=== PATIENT | male | born 1975 | race Two or more races ===

== ENCOUNTER 2018-05-29 22:08 | Emergency (ER) | payer MEDICAID, OTHER ==
[~2018-05-29] VITALS: Ht 177.8 cm; Wt 116.3 kg
[~2018-05-29 22:08] MED LIST: FLO0.4C PO; NO HOME MEDS; PANT40TA39 PO
[2018-05-29 22:11] VITALS: BP 170/102
[2018-05-29] MEDS ORDERED: WARF5TAB PO (22:51)
[2018-05-29] MEDS ORDERED: WARF2TAB PO (22:51)
== END 2018-05-29 22:56 | disposition home or self-care (01) ==
LOC: ER 22:09
DX: I26.99 Other pulmonary embolism without acute cor pulmonale (principal); F12.10 Cannabis abuse, uncomplicated; F17.200 Nicotine dependence, unspecified, uncomplicated; K21.9 Gastro-esophageal reflux disease without esophagitis; Z76.0 Encounter for issue of repeat prescription
CPT/HCPCS: 99283

== ENCOUNTER 2018-07-02 01:01 | Emergency (ER) | payer OTHER ==
[~2018-07-02 01:01] MED LIST changes: +WARF2TAB PO; +WARF5TAB PO
== END 2018-07-02 02:32 | disposition left against medical advice (07) ==
LOC: ER 01:01
DX: M54.2 Cervicalgia (principal); Z53.21 Procedure and treatment not carried out due to patient leaving prior to being seen by health care provider

== ENCOUNTER 2018-08-22 06:04 | Emergency (ER) | payer MEDICAID, OTHER ==
[~2018-08-22] VITALS: Ht 177.8 cm; Wt 127.5 kg
[2018-08-22 07:48] LABS: D-DIMER 0.35 MG/L FEU (0-0.50)
[2018-08-22] MEDS ORDERED: iohexol 350MG/ML 100ml bottle IV ONE (07:51)
[2018-08-22 07:53] LABS: BASOPHILS % (AUTO) 0.5 % (0-1); EOSINOPHILS % (AUTO) 0.6 % (0-6); HEMATOCRIT 46.3 % (42.0-52.0); HEMOGLOBIN 16.2 g/dl (14.0-17.9); LYMPHOCYTES # (AUTO) 1.2 X10'3 (1.1-4.8); LYMPHOCYTES % (AUTO) 17.7 % (21-51); MEAN CORPUSCULAR HEMOGLOBIN 33.6 PG (27.0-31.0); MEAN PLATELET VOLUME 9.2 FL (7.4-10.4); MONOCYTES # (AUTO) 0.5 X10'3 (0-0.9); MONOCYTES % (AUTO) 7.9 % (2-12); NEUTROPHILS # (AUTO) 4.8 X10'3 (1.8-7.7); NEUTROPHILS % (AUTO) 73.3 % (42-75); PLATELET COUNT 209 X10'3 (140-440); RED BLOOD COUNT 4.82 X10'6 (4.70-6.10); RED CELL DISTRIBUTION WIDTH 12.9 % (11.5-14.5); WHITE BLOOD COUNT 6.6 X10'3 (4.5-11.0)
[2018-08-22 08:02] LABS: ALANINE AMINOTRANSFERASE 30 U/L (12-78); ALBUMIN 3.9 G/DL (3.4-5.0); ALKALINE PHOSPHATASE 76 IU/L (46-116); ANION GAP 12 (8-16); ASPARTATE AMINO TRANSFERASE 20 U/L (10-37); BILIRUBIN,TOTAL 0.7 MG/DL (0.1-1.0); BLOOD UREA NITROGEN 13 MG/DL (7-18); BUN/CREATININE RATIO 12.5 (5.4-32.0); CALCIUM 8.9 MG/DL (8.5-10.1); CHLORIDE 103 MMOL/L (99-107); CREATININE 1.04 MG/DL (0.60-1.10); GLUCOSE 115 MG/DL (70-104); POTASSIUM 3.8 MMOL/L (3.5-5.1); SODIUM 140 MMOL/L (135-145); TOTAL CARBON DIOXIDE 25.1 MMOL/L (24-32); eGFR 78 ML/MIN
[2018-08-22 08:06] LABS: INR 1.1 INR; PARTIAL THROMBOPLASTIN TIME 28 SECONDS (22-32); PROTHROMBIN TIME 10.8 SECONDS (9.0-12.0)
[2018-08-22 09:05] VITALS: BP 169/95
== END 2018-08-22 09:22 | disposition home or self-care (01) ==
LOC: ER 06:05
DX: R07.89 Other chest pain (principal); K21.9 Gastro-esophageal reflux disease without esophagitis; Z86.718 Personal history of other venous thrombosis and embolism; F12.90 Cannabis use, unspecified, uncomplicated; F17.200 Nicotine dependence, unspecified, uncomplicated; Z79.01 Long term (current) use of anticoagulants; Z79.899 Other long term (current) drug therapy
CPT/HCPCS: 36415; 80053; 84484; 85025; 85379; 85610; 85730; 93005; 99284; Q9967

== ENCOUNTER → 2018-10-10 | Emergency (ER) | payer MEDICAID, OTHER ==
[~2018-10-10] VITALS: Ht 177.8 cm; Wt 101.0 kg
[~2018-10-10] MED LIST changes: +CEPH500C5 PO; +NYST15PO4 TP; +SULF1TAB49 PO
[2018-10-10 05:48] VITALS: BP 150/90
== END | disposition home or self-care (01) ==
LOC: ER 05:46
DX: L30.4 Erythema intertrigo (principal); L03.115 Cellulitis of right lower limb; K21.9 Gastro-esophageal reflux disease without esophagitis; Z86.718 Personal history of other venous thrombosis and embolism; Z86.711 Personal history of pulmonary embolism; Z79.899 Other long term (current) drug therapy; Z59.0 Homelessness
CPT/HCPCS: 99283

== ENCOUNTER 2019-04-30 08:04 | Emergency (ER) | payer MEDICAID ==
[~2019-04-30] VITALS: Ht 177.8 cm; Wt 99.5 kg
[~2019-04-30 08:04] MED LIST changes: -CEPH500C5 PO; +CYCL-1 PO; -FLO0.4C PO; -NO HOME MEDS; -NYST15PO4 TP; -PANT40TA39 PO; -SULF1TAB49 PO; -WARF2TAB PO; -WARF5TAB PO
[2019-04-30] MEDS ORDERED: triamcinolone acetonide 40mg/ml inj IM ONE (08:30)
[2019-04-30 08:47] VITALS: BP 129/100
[2019-04-30] MEDS ORDERED: CEPH-572 PO (08:47)
[2019-04-30] MEDS ORDERED: DIPH25CA83 PO (08:47)
== END 2019-04-30 09:51 | disposition home or self-care (01) ==
LOC: ER 08:04
DX: L03.113 Cellulitis of right upper limb (principal); L23.9 Allergic contact dermatitis, unspecified cause; K21.9 Gastro-esophageal reflux disease without esophagitis; F15.90 Other stimulant use, unspecified, uncomplicated; Z86.718 Personal history of other venous thrombosis and embolism; Z86.711 Personal history of pulmonary embolism
CPT/HCPCS: 96372; 99283; J3301

== ENCOUNTER 2019-05-02 23:34 | Emergency (ER) | payer MEDICAID ==
[~2019-05-02] VITALS: Ht 177.8 cm; Wt 81.0 kg
[~2019-05-02 23:34] MED LIST changes: +CEPH-572 PO; +DIPH25CA83 PO
[2019-05-03] MEDS ORDERED: naproxen 500mg tablet PO ONE (01:25)
[2019-05-03] MEDS ORDERED: HYDROcodone/acetaminophen 10/325mg tab PO ONE (01:25)
[2019-05-03] MEDS ORDERED: TRIA15CR61 TOP (01:28)
[2019-05-03] MEDS ORDERED: predniSONE 20 mg tablet PO ONE (01:30)
[2019-05-03] MEDS ORDERED: triamcinolone acetonide 40mg/ml inj IM ONE (01:30)
[2019-05-03] MEDS ORDERED: diphenhydrAMINE 25mg capsule PO ONE (01:30)
[2019-05-03 02:22] VITALS: BP 132/68
== END 2019-05-03 02:30 | disposition home or self-care (01) ==
LOC: ER 23:35
DX: L03.115 Cellulitis of right lower limb (principal); L25.9 Unspecified contact dermatitis, unspecified cause; F15.90 Other stimulant use, unspecified, uncomplicated; K21.9 Gastro-esophageal reflux disease without esophagitis; Z86.718 Personal history of other venous thrombosis and embolism; Z86.711 Personal history of pulmonary embolism; Z59.0 Homelessness
CPT/HCPCS: 96372; 99284; J3301; J7512; Q0163

== ENCOUNTER 2019-05-06 02:33 | Emergency (ER) | payer MEDICAID ==
[~2019-05-06] VITALS: Ht 177.8 cm; Wt 100.0 kg
[~2019-05-06 02:33] MED LIST changes: +TRIA15CR61 TOP
[2019-05-06 02:36] VITALS: BP 117/97
[2019-05-06] MEDS ORDERED: mupirocin 2% ointment 22GM TP STA (03:07)
== END 2019-05-06 03:42 | disposition home or self-care (01) ==
LOC: ER 02:33
DX: R21 Rash and other nonspecific skin eruption (principal); K21.9 Gastro-esophageal reflux disease without esophagitis; F17.200 Nicotine dependence, unspecified, uncomplicated; F15.90 Other stimulant use, unspecified, uncomplicated; F10.99 Alcohol use, unspecified with unspecified alcohol-induced disorder; Z86.718 Personal history of other venous thrombosis and embolism; Z86.711 Personal history of pulmonary embolism; Z60.2 Problems related to living alone; Z59.0 Homelessness; Z79.899 Other long term (current) drug therapy; Y90.9 Presence of alcohol in blood, level not specified
CPT/HCPCS: 99282

== ENCOUNTER 2019-06-08 03:25 | Emergency (ER) | payer MEDICAID ==
[~2019-06-08] VITALS: Ht 177.8 cm; Wt 90.9 kg
[~2019-06-08 03:25] MED LIST changes: -CEPH-572 PO; -TRIA15CR61 TOP
[2019-06-08 03:35] VITALS: BP 139/90
[2019-06-08] MEDS ORDERED: MUPI22OI30 TOP (03:49)
[2019-06-08] MEDS ORDERED: PRED20TA PO (03:49)
== END 2019-06-08 03:55 | disposition home or self-care (01) ==
LOC: ER 03:25
DX: L25.9 Unspecified contact dermatitis, unspecified cause (principal); F15.90 Other stimulant use, unspecified, uncomplicated; K21.9 Gastro-esophageal reflux disease without esophagitis; F10.99 Alcohol use, unspecified with unspecified alcohol-induced disorder; Z86.711 Personal history of pulmonary embolism; Z86.718 Personal history of other venous thrombosis and embolism; Z60.2 Problems related to living alone; Z59.0 Homelessness; Z79.899 Other long term (current) drug therapy; Y90.9 Presence of alcohol in blood, level not specified
CPT/HCPCS: 99283

== ENCOUNTER 2019-08-19 17:34 | Emergency (ER) | payer MEDICAID ==
[~2019-08-19] VITALS: Ht 177.8 cm; Wt 100.0 kg
[2019-08-19 17:40] VITALS: BP 112/81
[2019-08-19] MEDS ORDERED: ibuprofen tablet 400 MG TABLET PO ONE (20:00)
== END 2019-08-19 20:19 | disposition home or self-care (01) ==
LOC: ER 17:35
DX: S93.492A Sprain of other ligament of left ankle, initial encounter (principal); S00.83XA Contusion of other part of head, initial encounter; K21.9 Gastro-esophageal reflux disease without esophagitis; F17.200 Nicotine dependence, unspecified, uncomplicated; F10.99 Alcohol use, unspecified with unspecified alcohol-induced disorder; F15.90 Other stimulant use, unspecified, uncomplicated; Z86.718 Personal history of other venous thrombosis and embolism; Z86.711 Personal history of pulmonary embolism; Z60.2 Problems related to living alone; Z59.0 Homelessness; Z79.899 Other long term (current) drug therapy; W01.0XXA Fall on same level from slipping, tripping and stumbling without subsequent striking against object, initial encounter; Y93.89 Activity, other specified; Y92.89 Other specified places as the place of occurrence of the external cause; Y99.8 Other external cause status; Y90.9 Presence of alcohol in blood, level not specified
CPT/HCPCS: 29515; 73610; 99284

== ENCOUNTER 2019-08-24 10:32 | Inpatient (IN) | payer MEDICAID ==
[~2019-08-24] VITALS: Ht 177.8 cm; Wt 97.0 kg
[2019-08-24 11:08] LABS: BASOPHILS % (AUTO) 0.3 % (0-1); EOSINOPHILS # (AUTO) 0.1 X10'3 (0-0.9); EOSINOPHILS % (AUTO) 0.8 % (0-6); HEMATOCRIT 48.1 % (42.0-52.0); LYMPHOCYTES # (AUTO) 1.2 X10'3 (1.1-4.8); LYMPHOCYTES % (AUTO) 16.6 % (21-51); MEAN CORPUSCULAR HGB CONC 35.4 g/dL (33.0-36.5); MEAN PLATELET VOLUME 7.8 FL (7.4-10.4); MONOCYTES # (AUTO) 0.7 X10'3 (0-0.9); MONOCYTES % (AUTO) 10.3 % (2-12); NEUTROPHILS # (AUTO) 5.2 X10'3 (1.8-7.7); PLATELET COUNT 306 X10'3 (140-440); RED BLOOD COUNT 5.01 X10'6 (4.70-6.10); RED CELL DISTRIBUTION WIDTH 12.7 % (11.5-14.5); WHITE BLOOD COUNT 7.2 X10'3 (4.5-11.0)
[2019-08-24 11:32] LABS: ALANINE AMINOTRANSFERASE 21 U/L (12-78); ALBUMIN 3.5 G/DL (3.4-5.0); ALBUMIN/GLOBULIN RATIO 0.8 (1.1-1.5); ALKALINE PHOSPHATASE 79 IU/L (46-116); ASPARTATE AMINO TRANSFERASE 13 U/L (10-37); BILIRUBIN,TOTAL 0.4 MG/DL (0.1-1.0); BLOOD UREA NITROGEN 15 MG/DL (7-18); BUN/CREATININE RATIO 13.6 (5.4-32.0); CALCIUM 9.6 MG/DL (8.5-10.1); CHLORIDE 103 MMOL/L (99-107); GLUCOSE 119 MG/DL (70-104); LIPASE 140 U/L (73-393); POTASSIUM 4.2 MMOL/L (3.5-5.1); TOTAL CARBON DIOXIDE 30.5 MMOL/L (24-32); eGFR 73 ML/MIN
[2019-08-24 11:39] LABS: SODIUM 140 MMOL/L (135-145)
[2019-08-24 11:39] LABS: CLARITY,URINE SLIGHTLY CLOUDY (Clear); COLOR,URINE YELLOW (Yellow); GLUCOSE, URINE NEGATIVE (Neg); KETONES,URINE NEGATIVE (Neg); LEUKOCYTE ESTERASE ,URINE NEGATIVE (Neg); NITRITES, URINE NEGATIVE (Neg); OCCULT BLOOD,URINE LARGE (Neg); PROTEIN,URINE NEGATIVE (Neg); UROBILINOGEN,URINE 0.2 E.U/dL (0.2-1.0)
[2019-08-24 11:40] LABS: UA COLLECTION TYPE CLN CATCH MIDSTREAM
[2019-08-24 11:48] LABS: BACTERIA,URINE NONE SEEN /HPF (Neg); MUCUS STRANDS FEW /LPF (Neg); SQUAMOUS EPITHELIAL CELL,UR FEW /LPF (FEW); WBC CLUMPS,URINE FEW /HPF (NEGATIVE)
[2019-08-24 11:50] LABS: CAL OXALATE CRYSTALS 2+ /HPF (NEGATIVE)
[2019-08-24] MEDS ORDERED: normal saline 1000ML IV soln IVB ONE (12:10)
[2019-08-24] MEDS ORDERED: metoclopramide 5 mg/ml inj IV ONE (12:10)
[2019-08-24 12:13] LABS: ANION GAP 7 (8-16)
--- NOTE | 2019-08-24 12:35 | NUR ---
Pt transported to CT scan via w/c. IV site and IVF bolus and medications to be started upon return from the CT scan.
[2019-08-24] MEDS ORDERED: normal saline 1000ml 1,000 ML IV ONE (12:55)
[2019-08-24] MEDS ORDERED: NO HOME MEDS (13:43)
[2019-08-24] MEDS ORDERED: magnesium 2GM in 50ml NS 50 ML IV PRN (13:45)
[2019-08-24] MEDS ORDERED: thiamine 100mg/ml 2ml inj. IV ONE (13:45)
[2019-08-24] MEDS ORDERED: haloperidol 5mg tablet PO PRN (13:45)
[2019-08-24] MEDS ORDERED: haloperidol lactate 5mg/ml inj IM PRN (13:45)
[2019-08-24] MEDS ORDERED: magnesium hydroxide 30ml (MOM) UD suspension PO PRN (13:45)
[2019-08-24] MEDS ORDERED: potassium Cl 20 mEq SR tablet PO PRN ×2 (13:45)
[2019-08-24] MEDS ORDERED: magnesium Cl slow-release 64mg tablet PO PRN (13:45)
[2019-08-24] MEDS ORDERED: magnesium 4gm in 100ml NS 100 ML IV PRN (13:45)
[2019-08-24] MEDS ORDERED: potassium CL 10mEq/100ml bag 100 ML IV PRN ×2 (13:45)
[2019-08-24] MEDS ORDERED: acetaminophen 325mg tablet PO PRN (13:45)
[2019-08-24] MEDS ORDERED: dextrose 50%-water 50ml dispensing syringe IV PRN (13:45)
[2019-08-24] MEDS ORDERED: ondansetron/PF 4mg/2ml inj IV PRN (13:45)
[2019-08-24] MEDS ORDERED: HYDROmorphone 1 mg/ml syringe IV PRN (13:45)
[2019-08-24] MEDS ORDERED: HYDROmorphone inj. 0.5 MG/0.5 ML DISP.SYRIN IV PRN (13:45)
[2019-08-24] MEDS ORDERED: LORazepam 2 mg/ml vial IV PRN (13:45)
--- NOTE | 2019-08-24 13:58 | NUR ---
PT REFUSING NG, WANTS TO SPEAK TO DR. KLINE BEFORE PLACEMENT. INFORMED DR. KLINE. WILL GO TALK TO PT.
--- NOTE | 2019-08-24 14:12 | NUR ---
PT AMBULATED TO BR, VOIDED AND BM X1 LOOSE/WATERY LARGE AMT
[2019-08-24] MEDS ORDERED: LIDOcaine 2% 10ml TOPICAL JELLY (Urojet) MM ONE (14:20)
[2019-08-24] MEDS: pantoprazole 40 MG vial IV SCH (14:27)
--- NOTE | 2019-08-24 15:56 | NUR ---
Saravanan carreon in [facility] - 08/24/19 at 1557 by CHRISTOPHER pt voided in brief.
[2019-08-24 16:13] VITALS: BP 134/76
[2019-08-24] MEDS: normal saline 1000ml 1,000 ML IV SCH (16:33)
[2019-08-24] MEDS: heparin, porcine 5000 units/ml vial SQ SCH (16:38)
--- NOTE | 2019-08-24 16:50 | NUR ---
Patient to room 340 A from the ED. Received report from GIRISH Roblero. Patient VSS. NG tube rotary planer set up operator to suction per MD order. Patient very sleepy and not very cooperative. Attempted to DART patient but patient is not answering questions appropriately. Will pass on.
--- NOTE | 2019-08-24 18:24 | NUR ---
Problems reprioritized. Patient report given, questions answered & plan of care reviewed with GIRISH Gibson.
[2019-08-24 19:27] VITALS: BP 136/85
[2019-08-24] MEDS: K and/or MAG REPLACEMENT MC SCH (20:00)
[2019-08-24] MEDS: diatr meglu/diatrizoate 30ml oral sol.-(3 dose) bottle PO SCH (20:55)
[2019-08-25] VITALS: BP 105/70
[2019-08-25] MEDS: heparin, porcine 5000 units/ml vial SQ SCH ×2 (00:29→07:58)
[2019-08-25] MEDS: normal saline 1000ml 1,000 ML IV SCH ×2 (00:29→12:04)
[2019-08-25 03:21] LABS: BASOPHILS % (AUTO) 0.7 % (0-1); EOSINOPHILS # (AUTO) 0.1 X10'3 (0-0.9); EOSINOPHILS % (AUTO) 1.5 % (0-6); HEMATOCRIT 40.3 % (42.0-52.0); HEMOGLOBIN 14.1 g/dl (14.0-17.9); LYMPHOCYTES # (AUTO) 1.6 X10'3 (1.1-4.8); LYMPHOCYTES % (AUTO) 23.9 % (21-51); MEAN CORPUSCULAR HEMOGLOBIN 33.8 PG (27.0-31.0); MEAN CORPUSCULAR HGB CONC 35.1 g/dL (33.0-36.5); MEAN CORPUSCULAR VOLUME 96.3 FL (78-98); MEAN PLATELET VOLUME 7.8 FL (7.4-10.4); MONOCYTES # (AUTO) 0.6 X10'3 (0-0.9); MONOCYTES % (AUTO) 8.9 % (2-12); NEUTROPHILS # (AUTO) 4.4 X10'3 (1.8-7.7); PLATELET COUNT 258 X10'3 (140-440); RED BLOOD COUNT 4.18 X10'6 (4.70-6.10); RED CELL DISTRIBUTION WIDTH 12.4 % (11.5-14.5); WHITE BLOOD COUNT 6.8 X10'3 (4.5-11.0)
[2019-08-25 03:36] LABS: ALANINE AMINOTRANSFERASE 18 U/L (12-78); ALBUMIN 2.6 G/DL (3.4-5.0); ALBUMIN/GLOBULIN RATIO 0.8 (1.1-1.5); ALKALINE PHOSPHATASE 59 IU/L (46-116); ANION GAP 6 (8-16); ASPARTATE AMINO TRANSFERASE 9 U/L (10-37); BILIRUBIN,TOTAL 0.3 MG/DL (0.1-1.0); BLOOD UREA NITROGEN 11 MG/DL (7-18); BUN/CREATININE RATIO 13.3 (5.4-32.0); CALCIUM 8.2 MG/DL (8.5-10.1); CHLORIDE 109 MMOL/L (99-107); CREATININE 0.83 MG/DL (0.60-1.10); GLUCOSE 88 MG/DL (70-104); MAGNESIUM 1.5 MG/DL (1.5-2.4); POTASSIUM 3.8 MMOL/L (3.5-5.1); SODIUM 143 MMOL/L (135-145); TOTAL CARBON DIOXIDE 27.6 MMOL/L (24-32); eGFR > 90 ML/MIN
--- NOTE | 2019-08-25 06:41 | NUR ---
Problems reprioritized. Patient report given, questions answered & plan of care reviewed with SAM. Addendum: 08/25/19 at 0641 by Marcial Cornejo RN Amended: Links added.
[2019-08-25] MEDS: diatr meglu/diatrizoate 30ml oral sol.-(3 dose) bottle PO SCH ×2 (07:57→10:21)
[2019-08-25] MEDS: pantoprazole 40 MG vial IV SCH (07:57)
[2019-08-25 08:00] VITALS: BP 111/72
[2019-08-25] MEDS: K and/or MAG REPLACEMENT MC SCH (08:00)
--- NOTE | 2019-08-25 09:24 | NUR ---
Patient in room DES 340. I have received report from Arthur STOUT and had the opportunity to ask questions and assume patient care.
[2019-08-25] MEDS ORDERED: iohexol 300mg/ml 100ml inj. ONE (09:40)
--- NOTE | 2019-08-25 10:30 | NUR ---
PIV S/L'd. NG clamped. Pt down to CT via w/c accompanied by assistant foreman. Pt belongings left in room.
[2019-08-25 11:00] VITALS: BP 118/71
--- NOTE | 2019-08-25 11:00 | NUR ---
Pt returned to room from CT via w/c accompanied by printing roller polisher. NG reconnected to low intermittent suction. PIV reconnected to IVF as ordered. Pt without complaint.
[2019-08-25] MEDS ORDERED: HYDROcodone/acetaminophen 10/325mg tab PO PRN (11:55)
[2019-08-25] MEDS ORDERED: HYDROcodone/acetaminophen 5mg/325mg tablet PO PRN (11:55)
--- NOTE | 2019-08-25 12:00 | NUR ---
NG tube d/c'd. Pt tolerated well, cannula intact.
--- NOTE | 2019-08-25 14:30 | NUR ---
Pt leaving AMA. Dr Marley notified. Pt educated in reasons to continue hospital stay and not leave AMA. Pt refused to wait. PIV d/c'd, cannula intact. Pt left with all personal belongings.
[2019-08-26] MEDS ORDERED: LORazepam 2 mg/ml vial IV PRN (13:45)
[2019-08-26] MEDS ORDERED: LORazepam 1 MG tablet PO PRN (13:45)
[2019-08-28] MEDS ORDERED: LORazepam 1 MG tablet PO PRN (13:45)
[2019-08-28] MEDS ORDERED: LORazepam 2 mg/ml vial IV PRN (13:45)
== END 2019-08-25 14:27 | disposition left against medical advice (07) | DRG 249 ==
LOC: ER 10:33 → ED HOLD 13:43 → SUR 3N 15:55
PROVIDERS: ADMIT Family Medicine; ATTEND Family Medicine
PROC: 0D9670Z Drainage of Stomach with Drainage Device, Via Natural or Artificial Opening (ICD-10-PCS; principal; 2019-08-24)
DX: K52.9 Noninfective gastroenteritis and colitis, unspecified (principal); F10.10 Alcohol abuse, uncomplicated; F15.10 Other stimulant abuse, uncomplicated; Z59.0 Homelessness; F17.210 Nicotine dependence, cigarettes, uncomplicated; Z53.29 Procedure and treatment not carried out because of patient's decision for other reasons; K21.9 Gastro-esophageal reflux disease without esophagitis; Z83.3 Family history of diabetes mellitus; Z86.711 Personal history of pulmonary embolism; Z86.718 Personal history of other venous thrombosis and embolism
CPT/HCPCS: 36415; 71045; 74018; 74176; 74177; 80053; 81001; 82948; 83690; 83735; 85025; 87081; 87088; C9113; G0378; J1170; J1644; J2060; J2765; J3411; J7030; Q9963; Q9967

== ENCOUNTER 2020-01-21 10:37 | Emergency (ER) | payer MEDICAID ==
[~2020-01-21] VITALS: Ht 177.8 cm; Wt 90.0 kg
[~2020-01-21 10:37] MED LIST changes: -CYCL-1 PO; -DIPH25CA83 PO; +NO HOME MEDS
[2020-01-21 12:09] LABS: BASOPHILS % (AUTO) 0.5 % (0-1); EOSINOPHILS # (AUTO) 0.6 X10'3 (0-0.9); EOSINOPHILS % (AUTO) 7.4 % (0-6); HEMATOCRIT 46.3 % (42.0-52.0); HEMOGLOBIN 15.9 g/dl (14.0-17.9); LYMPHOCYTES # (AUTO) 1.8 X10'3 (1.1-4.8); LYMPHOCYTES % (AUTO) 23.1 % (21-51); MEAN CORPUSCULAR HGB CONC 34.3 g/dL (33.0-36.5); MEAN CORPUSCULAR VOLUME 99.1 FL (78-98); MEAN PLATELET VOLUME 8.2 FL (7.4-10.4); MONOCYTES # (AUTO) 0.6 X10'3 (0-0.9); MONOCYTES % (AUTO) 8.5 % (2-12); NEUTROPHILS # (AUTO) 4.6 X10'3 (1.8-7.7); NEUTROPHILS % (AUTO) 60.5 % (42-75); PLATELET COUNT 236 X10'3 (140-440); RED BLOOD COUNT 4.68 X10'6 (4.70-6.10); RED CELL DISTRIBUTION WIDTH 14.1 % (11.5-14.5); WHITE BLOOD COUNT 7.7 X10'3 (4.5-11.0)
[2020-01-21] MEDS ORDERED: CEPH250T PO (12:26)
[2020-01-21 12:32] LABS: ALANINE AMINOTRANSFERASE 18 U/L (12-78); ALBUMIN 3.8 G/DL (3.4-5.0); ALBUMIN/GLOBULIN RATIO 1.2 (1.1-1.5); ALKALINE PHOSPHATASE 74 IU/L (46-116); ANION GAP 4 (8-16); ASPARTATE AMINO TRANSFERASE 17 U/L (10-37); BILIRUBIN,TOTAL 0.5 MG/DL (0.1-1.0); BLOOD UREA NITROGEN 15 MG/DL (7-18); BUN/CREATININE RATIO 13.5 (5.4-32.0); CALCIUM 8.7 MG/DL (8.5-10.1); CHLORIDE 109 MMOL/L (99-107); CREATININE 1.11 MG/DL (0.60-1.10); GLUCOSE 87 MG/DL (70-104); POTASSIUM 3.6 MMOL/L (3.5-5.1); SODIUM 143 MMOL/L (135-145); TOTAL CARBON DIOXIDE 29.6 MMOL/L (24-32); eGFR 72 ML/MIN
[2020-01-21 12:51] VITALS: BP 131/86
== END 2020-01-21 12:54 | disposition home or self-care (01) ==
LOC: ER 10:38
DX: L03.114 Cellulitis of left upper limb (principal); L23.7 Allergic contact dermatitis due to plants, except food
CPT/HCPCS: 36415; 80053; 85025; 99283

== ENCOUNTER 2020-01-25 04:25 | Emergency (ER) | payer MEDICAID ==
[~2020-01-25] VITALS: Ht 177.8 cm; Wt 100.0 kg
[~2020-01-25 04:25] MED LIST changes: +CEPH250T PO
[2020-01-25] MEDS ORDERED: CEPH500C5 PO (05:47)
--- NOTE | 2020-01-25 07:09 | NUR ---
US TECH AT BEDSIDE.
[2020-01-25 07:53] VITALS: BP 121/92
== END 2020-01-25 07:55 | disposition home or self-care (01) ==
LOC: ER 04:26
DX: L03.114 Cellulitis of left upper limb (principal); L23.7 Allergic contact dermatitis due to plants, except food; M79.89 Other specified soft tissue disorders; F17.200 Nicotine dependence, unspecified, uncomplicated; K21.9 Gastro-esophageal reflux disease without esophagitis; F12.90 Cannabis use, unspecified, uncomplicated; F15.90 Other stimulant use, unspecified, uncomplicated; Z86.711 Personal history of pulmonary embolism; Z86.718 Personal history of other venous thrombosis and embolism; Z72.89 Other problems related to lifestyle; Z60.2 Problems related to living alone; Z59.0 Homelessness; Z79.2 Long term (current) use of antibiotics
CPT/HCPCS: 93971; 99284

== ENCOUNTER 2020-06-19 06:34 | Inpatient (IN) | payer MEDICAID ==
[~2020-06-19] VITALS: Ht 185.4 cm; Wt 90.0 kg
[~2020-06-19 06:34] MED LIST changes: -CEPH250T PO; +CEPH500C5 PO
[2020-06-19] MEDS ORDERED: piperacillin/tazo 3.375gm/50ml 50 ML IV ONE (07:20)
--- NOTE | 2020-06-19 07:48 | NUR ---
Dr. Fan denies need for blood cultures at this time
[2020-06-19 07:53] LABS: BASOPHILS % (AUTO) 0.4 % (0-1); EOSINOPHILS # (AUTO) 0.1 X10'3 (0-0.9); EOSINOPHILS % (AUTO) 0.5 % (0-6); HEMATOCRIT 40.1 % (42.0-52.0); HEMOGLOBIN 13.6 g/dl (14.0-17.9); LYMPHOCYTES # (AUTO) 0.9 X10'3 (1.1-4.8); LYMPHOCYTES % (AUTO) 7.6 % (21-51); MEAN CORPUSCULAR HEMOGLOBIN 32.1 PG (27.0-31.0); MEAN CORPUSCULAR HGB CONC 33.9 g/dL (33.0-36.5); MEAN CORPUSCULAR VOLUME 94.7 FL (78-98); MEAN PLATELET VOLUME 7.7 FL (7.4-10.4); MONOCYTES # (AUTO) 0.8 X10'3 (0-0.9); MONOCYTES % (AUTO) 6.1 % (2-12); NEUTROPHILS # (AUTO) 10.6 X10'3 (1.8-7.7); NEUTROPHILS % (AUTO) 85.4 % (42-75); PLATELET COUNT 271 X10'3 (140-440); RED BLOOD COUNT 4.23 X10'6 (4.70-6.10); WHITE BLOOD COUNT 12.4 X10'3 (4.5-11.0)
[2020-06-19 08:05] LABS: ALANINE AMINOTRANSFERASE 14 U/L (12-78); ALBUMIN 3.1 G/DL (3.4-5.0); ALBUMIN/GLOBULIN RATIO 0.7 (1.1-1.5); ALKALINE PHOSPHATASE 84 IU/L (46-116); ANION GAP 7 (8-16); ASPARTATE AMINO TRANSFERASE 14 U/L (10-37); BILIRUBIN,TOTAL 0.5 MG/DL (0.1-1.0); BLOOD UREA NITROGEN 10 MG/DL (7-18); BUN/CREATININE RATIO 12.7 (5.4-32.0); CHLORIDE 102 MMOL/L (99-107); CREATININE 0.79 MG/DL (0.60-1.10); GLUCOSE 201 MG/DL (70-104); POTASSIUM 3.7 MMOL/L (3.5-5.1); SODIUM 134 MMOL/L (135-145); TOTAL CARBON DIOXIDE 25.1 MMOL/L (24-32); TOTAL PROTEIN 7.7 G/DL (6.4-8.2); eGFR > 90 ML/MIN
[2020-06-19] MEDS ORDERED: LIDOcaine 1% W/epiNEPHrine 1:100,000 20ml vial SQ ONE (08:55)
[2020-06-19] MEDS ORDERED: morphine 2 MG/ML inj. syringe IV PRN ×2 (09:20)
[2020-06-19] MEDS ORDERED: HYDROcodone/acetaminophen 5mg/325mg tablet PO PRN (09:20)
[2020-06-19] MEDS ORDERED: magnesium hydroxide 30ml (MOM) UD suspension PO PRN (09:20)
[2020-06-19] MEDS ORDERED: acetaminophen 325mg tablet PO PRN ×2 (09:20)
[2020-06-19] MEDS ORDERED: ondansetron/PF 4mg/2ml inj IV PRN (09:20)
[2020-06-19] MEDS ORDERED: mag hydrox/Alum hydrox/simeth 30ml oral suspension PO PRN (09:20)
--- NOTE | 2020-06-19 09:30 | NUR ---
at bedside performing I/D, pt tolerating well
[2020-06-19] MEDS: vancomycin/NS 1 GM ADD-VANTAGE 250 ML IV SCH ×2 (10:26→17:22)
[2020-06-19 11:00] VITALS: BP 128/72
--- NOTE | 2020-06-19 14:27 | NUR ---
PAGER ID: [phone] MESSAGE: [phone] Christian Renoton - Can We get these for Pt? Blood cultures, Wound Culture, Tox Screen and ETOH protocol. Please. He is also very sleepy. ISO until rule out MRSA? Thank you. Dory [id number]
[2020-06-19] MEDS ORDERED: cloNIDine 0.1 mg tablet PO PRN (15:40)
--- NOTE | 2020-06-19 18:21 | NUR ---
Problems reprioritized. Patient report given, questions answered & plan of care reviewed with Beto STOUT.
[2020-06-19 20:00] VITALS: BP 110/62
[2020-06-19] MEDS: lactobacillus rhamnosus 10,000 MMU CELLS/CAPSULE PO SCH (20:00)
[2020-06-20] VITALS: BP 139/85
[2020-06-20] MEDS: vancomycin/NS 1 GM ADD-VANTAGE 250 ML IV SCH ×2 (01:39→08:32)
[2020-06-20 06:12] LABS: BASOPHILS % (AUTO) 0.5 % (0-1); EOSINOPHILS # (AUTO) 0.1 X10'3 (0-0.9); EOSINOPHILS % (AUTO) 1.5 % (0-6); HEMATOCRIT 39.1 % (42.0-52.0); HEMOGLOBIN 13.6 g/dl (14.0-17.9); LYMPHOCYTES # (AUTO) 1.6 X10'3 (1.1-4.8); LYMPHOCYTES % (AUTO) 23.8 % (21-51); MEAN CORPUSCULAR HEMOGLOBIN 33.2 PG (27.0-31.0); MEAN CORPUSCULAR HGB CONC 34.8 g/dL (33.0-36.5); MEAN CORPUSCULAR VOLUME 95.4 FL (78-98); MEAN PLATELET VOLUME 7.8 FL (7.4-10.4); MONOCYTES # (AUTO) 0.6 X10'3 (0-0.9); MONOCYTES % (AUTO) 9.4 % (2-12); NEUTROPHILS # (AUTO) 4.3 X10'3 (1.8-7.7); NEUTROPHILS % (AUTO) 64.8 % (42-75); PLATELET COUNT 268 X10'3 (140-440); RED CELL DISTRIBUTION WIDTH 12.9 % (11.5-14.5); WHITE BLOOD COUNT 6.6 X10'3 (4.5-11.0)
[2020-06-20 06:13] LABS: ALBUMIN 2.6 G/DL (3.4-5.0); ANION GAP 5 (8-16); BLOOD UREA NITROGEN 9 MG/DL (7-18); BUN/CREATININE RATIO 11.8 (5.4-32.0); CALCIUM 8.9 MG/DL (8.5-10.1); CHLORIDE 107 MMOL/L (99-107); CREATININE 0.76 MG/DL (0.60-1.10); GLUCOSE 115 MG/DL (70-104); SODIUM 139 MMOL/L (135-145); TOTAL CARBON DIOXIDE 27.2 MMOL/L (24-32); eGFR > 90 ML/MIN
--- NOTE | 2020-06-20 06:34 | NUR ---
Patient in room DES 357. I have received report from GIRISH Pérez and had the opportunity to ask questions and assume patient care.
[2020-06-20 07:30] VITALS: BP 147/76
[2020-06-20] MEDS ORDERED: VANCOMYCIN LEVEL IV ONE (08:30)
[2020-06-20] MEDS: lactobacillus rhamnosus 10,000 MMU CELLS/CAPSULE PO SCH ×2 (08:32→19:08)
[2020-06-20] MEDS: pneumococcal 23-VAL P-sac vacc 25 mcg/0.5ml vial IMVAC ONE ×2 (10:15→15:26)
[2020-06-20 11:00] VITALS: BP 128/72
[2020-06-20] MEDS ORDERED: LIDOcaine 1% 30ml preserv. free vial SQ ONE (14:30)
--- NOTE | 2020-06-20 15:20 | NUR ---
Pt noted standing in doorway of room. When questioned as to what his needs where, pt wants to know when the doctor will be here to perform I&D of thumb. I informed pt that the doctor would be here between 1700 and 1800. Pt stated that he is wanting to leave after procedure is performed. I also informed the patient that we will be culturing the drained fluid and that it will take approximately 24 hours for the results. If he chooses to leave after his procedure, it will be against medical advise. Pt did not respond to said information. Will notify doctor and continue to monitor.
--- NOTE | 2020-06-20 15:51 | NUR ---
Pt states that he is missing 3 jackets that were present when he was admitted from the ED. No specific clothing materials were noted in admissions/belongings assessment. Housekeeping was notified and is checking in the lost and found and ED. Will continue to monitor.
[2020-06-20 18:00] VITALS: BP 141/92
--- NOTE | 2020-06-20 18:11 | NUR ---
Problems reprioritized. Patient report given, questions answered & plan of care reviewed with GIRISH Pérez.
[2020-06-20] MEDS: HYDROcodone/acetaminophen 10/325mg tab PO PRN (19:08)
[2020-06-20] MEDS: VANCOmycin 1250MG/NS 250ml Bag 250 ML IV SCH (19:13)
[2020-06-21] VITALS: BP 119/74
[2020-06-21] MEDS: VANCOmycin 1250MG/NS 250ml Bag 250 ML IV SCH ×2 (00:50→08:16)
[2020-06-21] MEDS: HYDROcodone/acetaminophen 10/325mg tab PO PRN (04:44)
[2020-06-21 05:21] LABS: ALBUMIN 2.6 G/DL (3.4-5.0); ANION GAP 5 (8-16); BLOOD UREA NITROGEN 14 MG/DL (7-18); BUN/CREATININE RATIO 16.9 (5.4-32.0); CHLORIDE 107 MMOL/L (99-107); CREATININE 0.83 MG/DL (0.60-1.10); GLUCOSE 93 MG/DL (70-104); POTASSIUM 3.9 MMOL/L (3.5-5.1); SODIUM 141 MMOL/L (135-145); eGFR > 90 ML/MIN
[2020-06-21 05:47] LABS: BASOPHILS % (AUTO) 0.5 % (0-1); EOSINOPHILS # (AUTO) 0.2 X10'3 (0-0.9); EOSINOPHILS % (AUTO) 2.7 % (0-6); HEMATOCRIT 36.6 % (42.0-52.0); LYMPHOCYTES # (AUTO) 1.9 X10'3 (1.1-4.8); LYMPHOCYTES % (AUTO) 27.7 % (21-51); MEAN CORPUSCULAR HEMOGLOBIN 33.4 PG (27.0-31.0); MEAN CORPUSCULAR HGB CONC 35.4 g/dL (33.0-36.5); MEAN CORPUSCULAR VOLUME 94.5 FL (78-98); MEAN PLATELET VOLUME 7.8 FL (7.4-10.4); MONOCYTES # (AUTO) 0.7 X10'3 (0-0.9); MONOCYTES % (AUTO) 10.5 % (2-12); NEUTROPHILS % (AUTO) 58.6 % (42-75); PLATELET COUNT 298 X10'3 (140-440); RED BLOOD COUNT 3.87 X10'6 (4.70-6.10); WHITE BLOOD COUNT 6.8 X10'3 (4.5-11.0)
--- NOTE | 2020-06-21 06:26 | NUR ---
Patient in room DES 357. I have received report from GIRISH Pérez and had the opportunity to ask questions and assume patient care.
[2020-06-21 07:00] VITALS: BP 144/100
[2020-06-21] MEDS ORDERED: HYDR-4383 PO (07:50)
[2020-06-21] MEDS ORDERED: SULF1TAB49 PO (07:50)
[2020-06-21] MEDS: lactobacillus rhamnosus 10,000 MMU CELLS/CAPSULE PO SCH (08:16)
--- NOTE | 2020-06-21 12:54 | NUR ---
Pt discharged to home at 1120, with all belongings, provided with bus pass. Discharge instructions and medications reviewed. New prescriptions provided to pt with instructions to take to [facility] to assist with filling and getting a new ID. Pt instructed to follow up with the wound care clinic in 2 weeks, phone number provided. Pt also instructed to follow up with either the ED or the [facility] with any concerns prior to his appointment at the Wound Care Clinic. [facility] schedule provided to patient. Dressing to right hand changed prior to pt leaving, pt stated understanding and confidence in changing his own dressing daily at home. Dressing supplies provided to patient. Pt escorted to front lobby by RN.
[2020-06-21] MEDS ORDERED: VANCOMYCIN LEVEL IV ONE (16:30)
== END 2020-06-21 11:21 | disposition home or self-care (01) | DRG 364 ==
LOC: ER 06:36 → ED HOLD 09:19 → SUR 3N 11:17
PROVIDERS: ADMIT Internal Medicine; ATTEND Internal Medicine
PROC: 3E0T3BZ Introduction of Anesthetic Agent into Peripheral Nerves and Plexi, Percutaneous Approach (ICD-10-PCS; 2020-06-19)
PROC: 0H9FXZZ Drainage of Right Hand Skin, External Approach (ICD-10-PCS; 2020-06-19)
PROC: 0JBJ0ZZ Excision of Right Hand Subcutaneous Tissue and Fascia, Open Approach (ICD-10-PCS; principal; 2020-06-20)
DX: L03.011 Cellulitis of right finger (principal); F17.210 Nicotine dependence, cigarettes, uncomplicated; L02.511 Cutaneous abscess of right hand; F12.90 Cannabis use, unspecified, uncomplicated; K21.9 Gastro-esophageal reflux disease without esophagitis; Z79.82 Long term (current) use of aspirin; Z83.3 Family history of diabetes mellitus; Z86.14 Personal history of Methicillin resistant Staphylococcus aureus infection; Z86.711 Personal history of pulmonary embolism; Z59.0 Homelessness; Z28.21 Immunization not carried out because of patient refusal
CPT/HCPCS: 26010; 36415; 73130; 80048; 80053; 80202; 85025; 87070; 87075; 87077; 87081; 87186; 90732; 96365; 99285; G0378; J2543; J3370

== ENCOUNTER 2020-12-17 20:06 | Emergency (ER) | payer MEDICAID ==
[~2020-12-17] VITALS: Ht 175.3 cm; Wt 97.7 kg
[~2020-12-17 20:06] MED LIST changes: -CEPH500C5 PO; +HYDR-4383 PO; -NO HOME MEDS
[2020-12-17 20:15] VITALS: BP 142/93
== END 2020-12-17 22:26 | disposition left against medical advice (07) ==
LOC: ER 20:07
DX: R68.84 Jaw pain (principal); Z53.21 Procedure and treatment not carried out due to patient leaving prior to being seen by health care provider

== ENCOUNTER 2020-12-18 23:54 | Emergency (ER) | payer MEDICAID ==
[~2020-12-18] VITALS: Ht 175.3 cm; Wt 100.0 kg
[2020-12-19] MEDS ORDERED: sulfamethoxazole/trimethoprim DS (800/160mg) tablet PO ONE (02:45)
[2020-12-19] MEDS ORDERED: HYDROcodone/acetaminophen 10/325mg tab PO ONE (02:45)
[2020-12-19] MEDS ORDERED: SULF1TAB49 PO (02:46)
[2020-12-19] MEDS ORDERED: IBUP-1986 PO (02:46)
[2020-12-19 03:08] VITALS: BP 168/72
== END 2020-12-19 03:12 | disposition home or self-care (01) ==
LOC: ER 23:55
DX: L02.01 Cutaneous abscess of face (principal); K21.9 Gastro-esophageal reflux disease without esophagitis; F12.10 Cannabis abuse, uncomplicated; F15.10 Other stimulant abuse, uncomplicated; Z59.0 Homelessness; Z79.899 Other long term (current) drug therapy
CPT/HCPCS: 99283

== ENCOUNTER 2021-02-02 09:10 | Emergency (ER) | payer MEDICAID ==
[~2021-02-02] VITALS: Ht 177.8 cm; Wt 100.0 kg
[~2021-02-02 09:10] MED LIST changes: +IBUP-1986 PO
[2021-02-02 09:18] VITALS: BP 131/81
[2021-02-02] MEDS ORDERED: AMOX-580 PO (09:26)
[2021-02-02] MEDS ORDERED: IBUP-1986 PO (09:26)
== END 2021-02-02 09:35 | disposition home or self-care (01) ==
LOC: ER 09:11
DX: K04.7 Periapical abscess without sinus (principal); K21.9 Gastro-esophageal reflux disease without esophagitis; F12.90 Cannabis use, unspecified, uncomplicated; F15.90 Other stimulant use, unspecified, uncomplicated; Z86.718 Personal history of other venous thrombosis and embolism; Z86.711 Personal history of pulmonary embolism; Z72.89 Other problems related to lifestyle; Z60.2 Problems related to living alone; Z59.0 Homelessness; Z79.899 Other long term (current) drug therapy
CPT/HCPCS: 99283

== ENCOUNTER 2021-05-03 06:06 | Emergency (ER) | payer MEDICAID ==
[~2021-05-03] VITALS: Ht 175.3 cm; Wt 95.5 kg
[2021-05-03 06:29] VITALS: BP 121/75
[2021-05-03] MEDS ORDERED: CLIN300C71 PO (06:43)
[2021-05-03] MEDS ORDERED: clindamycin 150mg capsule PO ONE (06:45)
== END 2021-05-03 07:01 | disposition home or self-care (01) ==
LOC: ER 06:08
DX: L03.115 Cellulitis of right lower limb (principal); L03.116 Cellulitis of left lower limb; J02.9 Acute pharyngitis, unspecified; K21.9 Gastro-esophageal reflux disease without esophagitis; F12.90 Cannabis use, unspecified, uncomplicated; F15.90 Other stimulant use, unspecified, uncomplicated; Z86.718 Personal history of other venous thrombosis and embolism; Z86.711 Personal history of pulmonary embolism; Z72.89 Other problems related to lifestyle; Z60.2 Problems related to living alone; Z59.00 Homelessness unspecified; Z79.2 Long term (current) use of antibiotics; Z79.899 Other long term (current) drug therapy
CPT/HCPCS: 99283

== ENCOUNTER 2021-08-09 06:17 | Emergency (ER) | payer MEDICAID ==
[~2021-08-09] VITALS: Ht 177.8 cm; Wt 90.0 kg
[2021-08-09 11:28] VITALS: BP 140/88
[2021-08-09] MEDS ORDERED: MUPI22OI30 TOP (11:41)
[2021-08-09] MEDS ORDERED: mupirocin 2% ointment 22GM TP STA (12:27)
== END 2021-08-09 12:57 | disposition home or self-care (01) ==
LOC: ER 06:18
DX: L01.00 Impetigo, unspecified (principal); Z20.822 Contact with and (suspected) exposure to COVID-19; R50.9 Fever, unspecified; K21.9 Gastro-esophageal reflux disease without esophagitis; F12.90 Cannabis use, unspecified, uncomplicated; F15.90 Other stimulant use, unspecified, uncomplicated; Z86.711 Personal history of pulmonary embolism; Z86.718 Personal history of other venous thrombosis and embolism; Z72.89 Other problems related to lifestyle; Z60.2 Problems related to living alone; Z59.00 Homelessness unspecified; Z79.899 Other long term (current) drug therapy
CPT/HCPCS: 87635; 99283; C9803

== ENCOUNTER 2021-08-19 04:34 | Emergency (ER) | payer MEDICAID ==
[~2021-08-19] VITALS: Ht 182.9 cm; Wt 82.0 kg
[2021-08-19] MEDS ORDERED: SULF1TAB49 PO (05:43)
[2021-08-19] MEDS ORDERED: sulfamethoxazole/trimethoprim DS (800/160mg) tablet PO ONE (05:45)
[2021-08-19] MEDS ORDERED: HYDR-3965 PO (06:07)
[2021-08-19] MEDS ORDERED: HYDROcodone/acetaminophen 5mg/325mg tablet PO ONE (06:10)
--- NOTE | 2021-08-19 06:15 | NUR ---
PATIENT TREATED AND RELEASED BY ME. SEEN IN T 2. RX PAIN MEDS AND ANTIBIOTICS
[2021-08-19 06:26] VITALS: BP 146/78
== END 2021-08-19 06:28 | disposition home or self-care (01) ==
LOC: ER 04:35
DX: L03.012 Cellulitis of left finger (principal); K21.9 Gastro-esophageal reflux disease without esophagitis; F12.90 Cannabis use, unspecified, uncomplicated; F15.90 Other stimulant use, unspecified, uncomplicated; Z87.01 Personal history of pneumonia (recurrent); Z86.718 Personal history of other venous thrombosis and embolism; Z86.19 Personal history of other infectious and parasitic diseases; Z59.00 Homelessness unspecified; Z79.899 Other long term (current) drug therapy
CPT/HCPCS: 99283

== ENCOUNTER 2021-08-21 08:37 | Emergency (ER) | payer MEDICAID ==
[~2021-08-21] VITALS: Ht 177.8 cm; Wt 95.6 kg
[~2021-08-21 08:37] MED LIST changes: +HYDR-3965 PO; +SULF1TAB49 PO
[2021-08-21 08:44] VITALS: BP 137/80
[2021-08-21] MEDS ORDERED: DOXYCYCLINE 100MG CAPSULE PO STA (09:55)
[2021-08-21] MEDS ORDERED: HYDROcodone/acetaminophen 5mg/325mg tablet PO ONE (10:35)
--- NOTE | 2021-08-21 10:35 | NUR ---
received verbal order for 5-325mg norco po x1 dose per pa mann. order placed as received
[2021-08-21] MEDS ORDERED: LIDOcaine 1% W/epiNEPHrine 1:200,000 10ml vial IJ ONE (10:45)
[2021-08-21] MEDS ORDERED: LIDOcaine 1% W/epiNEPHrine 1:100,000 20ml vial IJ ONE (11:00)
[2021-08-21] MEDS ORDERED: LORazepam 2 mg/ml vial IV STA (11:26)
[2021-08-21] MEDS ORDERED: SULF1TAB48 PO ×2 (11:37)
[2021-08-21] MEDS ORDERED: DOXY150T8 PO ×2 (11:37)
== END 2021-08-21 12:38 | disposition home or self-care (01) ==
LOC: ER 08:38
DX: L02.512 Cutaneous abscess of left hand (principal); K21.9 Gastro-esophageal reflux disease without esophagitis; F12.90 Cannabis use, unspecified, uncomplicated; F15.90 Other stimulant use, unspecified, uncomplicated; Z86.711 Personal history of pulmonary embolism; Z86.718 Personal history of other venous thrombosis and embolism; Z72.89 Other problems related to lifestyle; Z60.2 Problems related to living alone; Z59.00 Homelessness unspecified; Z79.2 Long term (current) use of antibiotics; Z79.899 Other long term (current) drug therapy
CPT/HCPCS: 26010; 99283

== ENCOUNTER 2021-09-13 06:03 | Emergency (ER) | payer MEDICAID ==
[~2021-09-13] VITALS: Ht 177.8 cm; Wt 96.0 kg
[~2021-09-13 06:03] MED LIST changes: -SULF1TAB49 PO
[2021-09-13 06:14] VITALS: BP 141/90
== END 2021-09-13 09:10 | disposition left against medical advice (07) ==
LOC: ER 06:04
DX: R09.89 Other specified symptoms and signs involving the circulatory and respiratory systems (principal); K21.9 Gastro-esophageal reflux disease without esophagitis; F17.200 Nicotine dependence, unspecified, uncomplicated; F12.90 Cannabis use, unspecified, uncomplicated; F15.90 Other stimulant use, unspecified, uncomplicated; Z86.711 Personal history of pulmonary embolism; Z86.718 Personal history of other venous thrombosis and embolism; Z72.89 Other problems related to lifestyle; Z60.2 Problems related to living alone; Z59.00 Homelessness unspecified; Z79.899 Other long term (current) drug therapy
CPT/HCPCS: 99281

== ENCOUNTER 2024-07-02 02:20 | Inpatient (IN) | payer MEDICAID ==
[~2024-07-02] VITALS: Ht 175.3 cm; Wt 97.2 kg
[~2024-07-02 02:20] MED LIST changes: -HYDR-3965 PO
[2024-07-02] MEDS ORDERED: ondansetron/PF 4mg/2ml inj IM ONE (05:00)
[2024-07-02] MEDS: ondansetron/PF 4mg/2ml inj IV ONE (05:22)
[2024-07-02] MEDS: normal saline 1000ML IV soln IVB ONE (05:23)
[2024-07-02 05:25] LABS: BASOPHILS % (AUTO) 0.1 % (0-1); EOSINOPHILS % (AUTO) 0.1 % (0-6); HEMATOCRIT 45.9 % (42.0-52.0); HEMOGLOBIN 15.7 g/dl (14.0-17.9); LYMPHOCYTES # (AUTO) 0.3 X10'3 (1.1-4.8); LYMPHOCYTES % (AUTO) 2.5 % (21-51); MEAN CORPUSCULAR HEMOGLOBIN 32.9 PG (27.0-31.0); MEAN CORPUSCULAR HGB CONC 34.2 g/dL (33.0-36.5); MEAN CORPUSCULAR VOLUME 96.4 FL (78-98); MONOCYTES # (AUTO) 0.9 X10'3 (0-0.9); MONOCYTES % (AUTO) 6.7 % (2-12); NEUTROPHILS # (AUTO) 12.1 X10'3 (1.8-7.7); NEUTROPHILS % (AUTO) 90.6 % (42-75); PLATELET COUNT 238 X10'3 (140-440); RED BLOOD COUNT 4.76 X10'6 (4.70-6.10); RED CELL DISTRIBUTION WIDTH 13.2 % (11.5-14.5); WHITE BLOOD COUNT 13.3 X10'3 (4.5-11.0)
[2024-07-02 05:42] LABS: ALANINE AMINOTRANSFERASE 35 U/L (12-78); ALKALINE PHOSPHATASE 82 IU/L (46-116); ANION GAP 8 (8-16); ASPARTATE AMINO TRANSFERASE 31 U/L (10-37); BILIRUBIN,TOTAL 0.9 MG/DL (0.1-1.0); BLOOD UREA NITROGEN 18 MG/DL (7-18); BUN/CREATININE RATIO 15.8 (10.0-20.0); CALCIUM 9.1 MG/DL (8.5-10.1); CHLORIDE 102 MMOL/L (99-107); CREATININE 1.14 MG/DL (0.60-1.10); ETHANOL < 10 MG/DL (<10); GLUCOSE 144 MG/DL (70-104); LIPASE 62 U/L (16-77); POTASSIUM 3.4 MMOL/L (3.5-5.1); SODIUM 141 MMOL/L (135-145); TOTAL PROTEIN 7.9 G/DL (6.4-8.2); eCRCL 78 ML/MIN; eGFR 68 ML/MIN
[2024-07-02] MEDS ORDERED: iohexol 300mg/ml 100ml inj. ONE (05:58)
[2024-07-02] MEDS ORDERED: DICY20TA17 PO (06:10)
[2024-07-02] MEDS ORDERED: ONDA-245 PO (06:10)
[2024-07-02] MEDS ORDERED: mag hydrox/Alum hydrox/simeth 30ml oral suspension PO PRN (07:20)
[2024-07-02] MEDS ORDERED: magnesium sulf-water 4G/100mL 100 ML IV PRN (07:20)
[2024-07-02] MEDS ORDERED: magnesium hydroxide 30ml (MOM) UD suspension PO PRN (07:20)
[2024-07-02] MEDS ORDERED: magnesium sulf-water 2g/50mL 50 ML IV PRN (07:20)
[2024-07-02] MEDS ORDERED: magnesium Cl slow-release 64mg tablet PO PRN (07:20)
[2024-07-02] MEDS ORDERED: acetaminophen 325mg tablet PO PRN (07:20)
[2024-07-02] MEDS ORDERED: ondansetron/PF 4mg/2ml inj IV PRN ×2 (07:20→13:15)
[2024-07-02] MEDS ORDERED: potassium Cl 20 mEq SR tablet PO PRN ×2 (07:20)
[2024-07-02 07:27] LABS: APTT 25 SECONDS (22-32); INR 1.1 INR; PROTHROMBIN TIME 11.3 SECONDS (9.0-12.0)
[2024-07-02] MEDS: docusate sod 100mg capsule PO SCH (08:00)
[2024-07-02] MEDS: normal saline 1000ML IV soln IV ONE (08:17)
[2024-07-02] MEDS: piperacillin/tazo 3.375gm/50ml 50 ML IV ONE (08:18)
[2024-07-02] MEDS: magnesium sulf-water 2g/50mL 50 ML IV ONE (08:23)
[2024-07-02] MEDS: potassium CL 10mEq/100ml bag 100 ML IV ONE (08:26)
[2024-07-02] MEDS: normal saline 1000ml 1,000 ML IV SCH (08:27)
[2024-07-02] MEDS: K and/or MAG REPLACEMENT MC SCH (08:52)
[2024-07-02] MEDS ORDERED: pantoprazole 40mg IV 80 MG in normal saline 100ml IV soln 100 ML IV ONE (11:40)
[2024-07-02] MEDS: diatr meglu/diatrizoate 30ml oral sol.-(3 dose) bottle PO SCH (12:09)
[2024-07-02] MEDS: pantoprazole 40 MG vial IV ONE (12:31)
[2024-07-02] MEDS: IOHEXOL 12MG/ML oral solution 500 ML BOTTLE PO STA (12:32)
[2024-07-02] MEDS ORDERED: BUPIVAcaine 0.5% inj/PF 30 ML ONE (13:14)
[2024-07-02] MEDS ORDERED: morphine 2 MG/ML inj. syringe IV PRN (13:15)
[2024-07-02] MEDS ORDERED: hydrALAZINE 20mg/ml inj. IV PRN (13:15)
[2024-07-02] MEDS ORDERED: fentaNYL/PF 50MCG/1 ML 2ML syringe IV PRN ×2 (13:15)
[2024-07-02] MEDS ORDERED: BUPIVACAINE liposomal/PF 13.3 MG/ML vial IM ONE (13:15)
[2024-07-02] MEDS: ringers solution, lacted 1,000 ML IV SCH (13:15)
[2024-07-02] MEDS ORDERED: morphine 4 MG/ML inj SYRINge IV PRN (13:15)
[2024-07-02] MEDS ORDERED: labetalol 20mg/4ml (5mg/ml) syringe IV PRN (13:15)
[2024-07-02] MEDS ORDERED: midazolam 1 mg/ML 2ml injection ONE (13:16)
[2024-07-02] MEDS ORDERED: fentaNYL /PF 50mcg/ml 5ml ampule ONE (13:17)
[2024-07-02] MEDS ORDERED: ondansetron/PF 4mg/2ml inj ONE (13:18)
[2024-07-02] MEDS ORDERED: LIDOcaine 2% (20mg/ml) 5ml vial ONE (13:18)
[2024-07-02] MEDS ORDERED: propofol inj 20 ML IV ONE (13:18)
[2024-07-02] MEDS ORDERED: rocuronium 10mg/ml inj IV ONE (13:18)
[2024-07-02] MEDS ORDERED: dexamethasone sod phosphate 4mg/ml inj. ONE (13:19)
[2024-07-02] MEDS: pantoprazole 40MG/NS 100ML BAG 100 ML IV SCH (16:00)
[2024-07-02 20:38] LABS: URINE AMPHETAMINE SCREEN POSITIVE (Neg); URINE BARBITUATE SCREEN NEGATIVE (Neg); URINE BENZODIAZEPINES SCREEN NEGATIVE (Neg); URINE CANNABINOID SCREEN NEGATIVE (Neg); URINE COCAINE SCREEN NEGATIVE (Neg); URINE METHADONE SCREEN NEGATIVE (Neg); URINE OPIATE SCREEN NEGATIVE (Neg); URINE PHENCYCLIDINE SCREEN NEGATIVE (Neg)
[2024-07-02 22:00] VITALS: BP 138/75; PULSE 66; RESP 12; TEMP 98; O2SAT 99
[2024-07-02 22:04] LABS: H PYLORI ANTIBODY NEGATIVE (Neg)
[2024-07-02] MEDS: nicotine 14mg patch - 24hr TD ONE (22:09)
[2024-07-02 23:00] VITALS: RESP 16
[2024-07-02] MEDS: potassium Cl 40MEQ/1/2NS 520ml 520 ML IV PRN (23:29)
[2024-07-03 03:57] VITALS: BP 138/75; PULSE 66; RESP 12; TEMP 98; O2SAT 99
[2024-07-03 06:00] VITALS: BP 126/76; PULSE 85; RESP 16; TEMP 98.1; O2SAT 98
[2024-07-03 06:29] LABS: BASOPHILS % (AUTO) 0.1 % (0-1); EOSINOPHILS % (AUTO) 0.1 % (0-6); HEMATOCRIT 39.2 % (42.0-52.0); HEMOGLOBIN 13.6 g/dl (14.0-17.9); LYMPHOCYTES # (AUTO) 0.8 X10'3 (1.1-4.8); LYMPHOCYTES % (AUTO) 6.2 % (21-51); MEAN CORPUSCULAR HEMOGLOBIN 33.6 PG (27.0-31.0); MEAN CORPUSCULAR HGB CONC 34.8 g/dL (33.0-36.5); MEAN CORPUSCULAR VOLUME 96.6 FL (78-98); MEAN PLATELET VOLUME 9.8 FL (7.4-10.4); MONOCYTES # (AUTO) 1.1 X10'3 (0-0.9); MONOCYTES % (AUTO) 8.1 % (2-12); NEUTROPHILS # (AUTO) 11.6 X10'3 (1.8-7.7); NEUTROPHILS % (AUTO) 85.5 % (42-75); PLATELET COUNT 193 X10'3 (140-440); RED BLOOD COUNT 4.06 X10'6 (4.70-6.10); RED CELL DISTRIBUTION WIDTH 13.3 % (11.5-14.5); WHITE BLOOD COUNT 13.5 X10'3 (4.5-11.0)
[2024-07-03 06:33] LABS: ALANINE AMINOTRANSFERASE 23 U/L (12-78); ALBUMIN 2.7 G/DL (3.4-5.0); ALBUMIN/GLOBULIN RATIO 0.8 (1.1-1.5); ALKALINE PHOSPHATASE 71 IU/L (46-116); ANION GAP 7 (8-16); ASPARTATE AMINO TRANSFERASE 20 U/L (10-37); BILIRUBIN,TOTAL 0.7 MG/DL (0.1-1.0); BLOOD UREA NITROGEN 11 MG/DL (7-18); BUN/CREATININE RATIO 13.6 (10.0-20.0); CALCIUM 8.3 MG/DL (8.5-10.1); CHLORIDE 106 MMOL/L (99-107); CREATININE 0.81 MG/DL (0.60-1.10); GLUCOSE 103 MG/DL (70-104); SODIUM 140 MMOL/L (135-145); TOTAL CARBON DIOXIDE 26.9 MMOL/L (24-32); TOTAL PROTEIN 6.3 G/DL (6.4-8.2); eCRCL 110 ML/MIN; eGFR > 90 ML/MIN
[2024-07-03 10:00] VITALS: BP 120/78; PULSE 90; RESP 16; TEMP 98.1; O2SAT 99
[2024-07-03 10:40] VITALS: RESP 18
[2024-07-03] MEDS ORDERED: PANT40TA54 PO ×2 (13:01→13:08)
[2024-07-03] MEDS ORDERED: insulin regular, human U-100 10ml vial - multi-dose IV ONE (14:50)
== END 2024-07-03 13:36 | disposition home or self-care (01) | DRG 254 ==
LOC: ER 02:21 → ED HOLD 07:23 → UNDOADMIN 07:23 → ED HOLD 11:44 → SUR 3N 18:30 → ED HOLD 18:30 → UNDODISIN 07-03 13:36
PROVIDERS: ADMIT Family Medicine; ATTEND Family Medicine
PROC: BW211ZZ Computerized Tomography (CT Scan) of Abdomen and Pelvis using Low Osmolar Contrast (ICD-10-PCS; principal; 2024-07-02)
DX: K66.8 Other specified disorders of peritoneum (principal); J44.9 Chronic obstructive pulmonary disease, unspecified; K21.9 Gastro-esophageal reflux disease without esophagitis; Z87.891 Personal history of nicotine dependence; Z59.00 Homelessness unspecified; Z86.718 Personal history of other venous thrombosis and embolism; Z86.711 Personal history of pulmonary embolism; Z83.3 Family history of diabetes mellitus
CPT/HCPCS: 36415; 74176; 74177; 80053; 80305; 80320; 83605; 83690; 83735; 84132; 84484; 85025; 85610; 85730; 86677; 86885; 86900; 86901; 87040; 87081; 93005; 96374; 99285; A6213; C9290; G0378; J1100; J2003; J2250; J2405; J2470; J2543; J2704; J3010; J3480; J3490; J7030; J7120; Q9967

== ENCOUNTER → 2025-04-27 | Emergency (ER) | payer MEDICAID ==
[~2025-04-27] VITALS: Ht 175.3 cm; Wt 72.8 kg
[~2025-04-27] MED LIST changes: +DICY20TA17 PO; -HYDR-4383 PO; -IBUP-1986 PO; +ONDA-243 PO; +ONDA-245 PO; +PANT40TA54 PO; +SULF1TAB49 PO
[2025-04-27 18:32] VITALS: BP 127/81; PULSE 74; RESP 12; O2SAT 100
--- NOTE | 2025-04-27 19:03 | Physician Documentation ---
History of Present Illness ~ General Chief Complaint: Multiple Medical Complaints Stated Complaint: MULTIPLE MED COMPLAINTS Time Seen by MD: 19:37 History of Present Illness Initial Comments This is a 49-year-old male who presents with a concern for multiple sores to bilateral arms and legs, patient reports that he is concerned they may be staph infections. Patient additionally reports nausea and diarrhea onset earlier today, patient reports no vomiting though reports sulfur burps. Patient reports no fever or chills. Medication Reconciliation Allergies: Coded Allergies: No Known Allergies (Unverified , 04/27/25) Scheduled Ondansetron 8mg ODT (Ondansetron Odt), 1 TAB PO Q6H Pantoprazole Sodium (Pantoprazole Sodium), 40 MG PO BID Sulfamethoxazole/Trimethoprim (Bactrim Ds Tablet), 1 TAB PO Q12H Scheduled PRN Dicyclomine HCl (Dicyclomine HCl), 1 TAB PO Q8H PRN for abdominal cramps ONDANSETRON ODT 4mg tablet (Ondansetron Odt), 1 TAB PO Q6H PRN PRN for nausea/vomiting Past Medical History Past Medical History: Pulmonary Embolism, GERD, Deep Vein Thrombosis, Cellulitis Past Surgical History: no surgical history Patient History: FH: diabetes mellitus MOTHER Alcohol Use: Heavy Drug Use: marijuana, methamphetamine Lives with: Alone Lives In: Homeless Review of Systems ROS As stated above in the HPI, otherwise all systems are reviewed and negative. Physical Exam Physical Exam Vital Signs: Temperature: 97.3, Source: Oral, Heart Rate: 74, Respiratory Rate: 12, BP: 127/81, Pulse Oximetry: 100, Weight: 72.800 Physical Exam VITALS: Reviewed and as above. GENERAL: Alert, nontoxic appearing, no apparent distress. RESPIRATORY: No increased work of breathing, no respiratory distress, speaking in full clear sentences, clear lung sounds in all gar[place] CV: Regular rate and rhythm no murmur GI: Soft, nontender, no rebound, no guarding, bowel sounds present MUSCULOSKELETAL: SKIN: Multiple open sores to bilateral forearms and lower legs, sores are slightly purulent though without fluctuance or induration, minimal surrounding erythema Progress Results/Orders Results/Orders Completed Orders - ENID KLINEP Ondansetron Disint. Tablet (Zofran Odt T (04/27/25 19:40) Sulfamethox/Trimetho. Ds Tab (Septra Ds (04/27/25 19:40) Vital Signs 04/27/25 04/27/25 18:32 20:53 Temp 97.3 97.3 Pulse 74 Resp 12 B/P (MAP) 127/81 Pulse Ox 100 Medical Decision Making Findings MSE performed in triage and patient returned to ED lobby by nursing staff to await available ED room This 49-year-old male presented with concern for multiple source to his bilateral arms and legs, patient had additional concern for nausea and diarrhea beginning today. Patient was medicated with Zofran for nausea and reported good control symptoms, it is reassuring. Patient reports no abdominal pain or feverand patient is able to maintain oral intake. Physical exam of sores de monstrate several shallow open wounds, covering forearms and lower legs, wounds contain small amount of purulent discharge though there is not fluctuance or induration, erythema and tenderness is limited to immediate surrounding area and does not appear deep, wounds appear superficial and do not affect deeper tissues. Patient is otherwise well, appearing appropriate prop. Patient follow up, given risk factors for MRSA, patient will be treated with Bactrim DS. Patient given home care instructions, follow up instructions, and return to care precautions to include education on diarrhea, which patient verbalized understanding of. Differential Diagnosis GI bleed, diverticulitis, GI obstruction, bowel ischemia, cellulitis, abscess, gastritis Departure Time of Disposition: 20:43 Disposition: 01 HOME / SELF CARE / HOMELESS Impression: Primary Impression: Nausea Additional Impressions: Diarrhea Qualified Codes: R19.7 - Diarrhea, unspecified Wound infection Condition: Improved Discharge Instructions: Cellulitis, Adult, [id number], Diarrhea, Adult, Easy- to-Read Additional Instructions: Please take the antibiotics as prescribed for the wounds to your arms and legs, keep these areas clean dry and covered. Please use the prescribed Zofran as needed for nausea and vomiting, stay well hydrated and eat as tolerated. If your diarrhea continues for more than three days please return to be re- evaluated. Please follow up with your primary care provider in the next few days. Please return to the emergency department for any new or worsening concerning symptoms. Referrals: NO PRIMARY CARE PROVIDER (PCP) Prescriptions ONDANSETRON ODT 4mg tablet (ONDANSETRON ODT) 4 Mg Tab.rapdis 1 TAB PO Q6H PRN PRN for nausea/vomiting for 4 Days, #16 TAB 0 Refills Prov: ENID KLINE 04/27/25 Sulfamethoxazole/Trimethoprim (Bactrim Ds Tablet) 800 Mg-160 Mg Tablet 1 TAB PO Q12H for 7 Days, #14 TAB Prov: ENID KLINE 04/27/25 Education Educated: Patient Educated regarding: diagnosis, treatment, prognosis, need for follow up Signature Scribe Signature: No scribe Attestation: The note accurately reflects work and decisions made by me.SONNY Brooks 04/28/25 13:29 ENID KLINE Apr 27, 2025 19:03
[2025-04-27] MEDS: sulfamethoxazole/trimethoprim DS (800/160mg) tablet PO ONE (19:57)
[2025-04-27] MEDS: ondansetron 4mg rapidly disintigrating tab PO ONE (19:57)
[2025-04-27 20:53] VITALS: TEMP 97.3
== END | disposition home or self-care (01) ==
LOC: ER 18:30
DX: R11.0 Nausea (principal); R19.7 Diarrhea, unspecified; L08.9 Local infection of the skin and subcutaneous tissue, unspecified; K21.9 Gastro-esophageal reflux disease without esophagitis; F12.90 Cannabis use, unspecified, uncomplicated; F15.90 Other stimulant use, unspecified, uncomplicated; Z86.711 Personal history of pulmonary embolism; Z86.718 Personal history of other venous thrombosis and embolism; Z79.899 Other long term (current) drug therapy; Z59.02 Unsheltered homelessness; Z60.2 Problems related to living alone
CPT/HCPCS: 99283

== ENCOUNTER 2025-06-08 21:54 | Emergency (ER) | payer MEDICAID ==
[~2025-06-08] VITALS: Ht 175.3 cm; Wt 84.3 kg
[~2025-06-08 21:54] MED LIST changes: -SULF1TAB49 PO
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
[2025-06-08] MEDS: ketorolac trometh 15mg/ml vial 15 MG/ML ML IM ONE (22:40)
[2025-06-08 22:44] VITALS: BP 127/91; PULSE 69; RESP 16; O2SAT 100
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
[2025-06-08 23:53] VITALS: TEMP 96.7
== END 2025-06-09 00:35 | disposition home or self-care (01) ==
LOC: ER 21:54
DX: M25.512 Pain in left shoulder (principal); K21.9 Gastro-esophageal reflux disease without esophagitis; F12.90 Cannabis use, unspecified, uncomplicated; F15.90 Other stimulant use, unspecified, uncomplicated; F10.90 Alcohol use, unspecified, uncomplicated; Z59.00 Homelessness unspecified; Z86.711 Personal history of pulmonary embolism; Z60.2 Problems related to living alone; Z86.718 Personal history of other venous thrombosis and embolism; V19.9XXA Pedal cyclist (driver) (passenger) injured in unspecified traffic accident, initial encounter; Y93.55 Activity, bike riding; Y93.89 Activity, other specified; Y92.89 Other specified places as the place of occurrence of the external cause; Y99.8 Other external cause status; Y90.9 Presence of alcohol in blood, level not specified
CPT/HCPCS: 70450; 73030; 96372; 99285; J1885